=== PATIENT | male | born 1975 | race Caucasian/White ===

== ENCOUNTER 2024-08-13 06:10 | Inpatient (IN) | payer BC ==
--- NOTE | 2024-08-13 06:35 | ED ---
Abdominal Pain HPI - General Chief Complaint: Abdominal Pain Stated Complaint: Vomiting Time Seen by Provider: 08/13/24 06:33 Source: patient, RN notes reviewed Mode of arrival: ambulatory Limitations: no limitations - History of Present Illness Initial Comments: 49 year old male presenting to the ER for evaluation of nausea, vomiting, diarrhea and abdominal pain. Patient states he ate a steak around 6 PM last night and was fine until about 10pm when he started persistently vomiting along with diarrhea. He states his emesis and stool is clear liquid. He denies any hematic emesis, coffee-ground emesis, hematochezia or melena. Patient also was experiencing a right flank discomfort. He states it is a sharp cramping pain. He denies any urinary complaints. No fevers. Patient has not taken anything for his pain at this time. Patient has no significant past medical history. Patient reports mild shortness of breath denies any chest pain. - Related Data Home Medications Medication Instructions Recorded Confirmed Ascorbic Acid [Vitamin C] 1,000 mg PO W/BRKFST 08/13/24 08/13/24 Cholecalciferol (Vitamin D3) 100 mcg PO W/BRKFST 08/13/24 08/13/24 [Vitamin D3 (50 Mcg = 2000 Iu)] Magnesium Oxide [Magnesium] 500 mg PO W/BRKFST 08/13/24 08/13/24 Multivitamins, Thera [Multivitamin 1 tab PO W/BRKFST 08/13/24 08/13/24 (formulary)] Allergies Allergy/AdvReac Type Severity Reaction Status Date / Time Penicillins Allergy Anaphylaxis Verified 08/13/24 10:48 Review of Systems ROS Statement: Those systems with pertinent positive or pertinent negative responses have been documented in the HPI. ROS Other: All systems not noted in ROS Statement are negative. Past Medical History Past Medical History: No Reported History History of Any Multi-Drug Resistant Organisms: None Reported Past Surgical History: No Surgical Hx Reported Past Psychological History: No Psychological Hx Reported Smoking Status: Never smoker Past Alcohol Use History: None Reported Past Drug Use History: None Reported General Exam Limitations: no limitations General appearance: alert, in no apparent distress Respiratory exam: Present: normal lung sounds bilaterally. Absent: respiratory distress, wheezes, rales, rhonchi, stridor Cardiovascular Exam: Present: normal rhythm, tachycardia, normal heart sounds GI/Abdominal exam: Present: soft, tenderness (upper quadrants), normal bowel s ounds Neurological exam: Present: alert, oriented X3, CN II-XII intact Skin exam: Present: warm, dry, intact, normal color. Absent: rash Course Vital Signs 08/13/24 08/13/24 08/13/24 06:11 07:38 10:17 Temperature 98.8 F 97.5 F L 98.0 F Pulse Rate 121 H 105 H 96 Respiratory 20 17 17 Rate Blood Pressure 120/81 116/83 103/74 O2 Sat by Pulse 99 100 95 Oximetry - Reevaluation(s) Reevaluation #1: 08/13/24 07:46 Patient reevaluated. Patient reporting nausea. No signs of acute distress 08/13/24 09:28 Patient reevaluated. Patient resting comfortably on stretcher no signs of acute distress. Updated on laboratory and CT results. Patient requesting water, which was provided. 08/13/24 09:[address] Lucas, [facility] physician, for admission. Medical Decision Making - Medical Decision Making Was pt. sent in by a medical professional or institution (, PA, [facility], urgent care, hospital, or residential...) When possible be specific @ -No Did you speak to anyone other than the patient for history (EMS, parent, family, police, friend...)? What history was obtained from this source @ -No Did you review nursing and triage notes (agree or disagree)? Why? @ -I reviewed and agree with nursing and triage notes Were old charts reviewed (outside hosp., previous admission, EMS record, old EKG, old radiological studies, urgent care reports/EKG's, residential records)? Report findings @ -No old charts were reviewed Differential Diagnosis (chest pain, altered mental status, abdominal pain women, abdominal pain men, vaginal bleeding, weakness, fever, dyspnea, syncope, headache, dizziness, GI bleed, back pain, seizure, CVA, palpatations, mental health, musculoskeletal)? @ -Differential Abdominal Pain Men:Appendicitis, cholecystitis, diverticulosis, ischemic bowel, pancreatitis, hepatitis, UTI, gastroenteritis, AAA, incarcerated hernia, bowel obstruction, constipation, inflammatory bowel, hepatitis, peptic ulcer disease, splenic infarction, perforated viscus, testicular torsion, this is not meant to be an all-inclusive list EKG interpreted by me (3pts min.). @ -As above X-rays interpreted by me (1pt min.). @ -CXR interpreted by me negative for focal consolidations, pneumothorax or pleural effusions CT interpreted by me (1pt min.). @ -CT abdomen pelvis showing possible mild diffuse long segment acute colitis. No bowel obstruction. Normal appendix. Small fat-containing umbilical hernia. Diverticula no evidence of acute diverticulitis. No other acute abnormality. U/S interpreted by me (1pt. min.). @ -None done What testing was considered but not performed or refused? (CT, X-rays, U/S, labs)? Why? @ -None What meds were considered but not given or refused? Why? @ -None Did you discuss the management of the patient with other professionals (professionals i.e. , PA, [facility], lab, RT, psych nurse, dialysis social worker, communication studies professor, teacher, custom protection officer, top case assembler)? Give summary @ -Yes, case discussed with Dr. Lucas, [facility] physician, for admission. Was smoking cessation discussed for >3mins.? @ -No Was critical care preformed (if so, how long)? @ -No Were there social determinants of health that impacted care today? How? (Homel essness, low income, unemployed, alcoholism, drug addiction, transportation, low edu. Level, literacy, decrease access to med. care, halfway, rehab)? @ -No Was there de-escalation of care discussed even if they declined (Discuss DNR or withdrawal of care, Hospice)? DNR status @ -No What co-morbidities impacted this encounter? (DM, HTN, Smoking, COPD, CAD, Cancer, CVA, ARF, Chemo, Hep., AIDS, mental health diagnosis, sleep apnea, morbid obesity)? @ -None Was patient admitted / discharged? Hospital course, mention meds given and route, prescriptions, significant lab abnormalities, going to OR and other pertinent info. @ -Admitted. 49-year-old male presented the ER for evaluation of nausea, vomiting and diarrhea. Upon rooming, history and physical exam completed. Patient is tachycardic at 121 bpm. Vitals otherwise within acceptable limits. Patient is mildly diaphoretic on exam pacing room and hunched over. Upper abdominal tenderness to exam. Given patient's presentation, EKG was obtained showing a sinus rhythm with inverted T waves in inferior lateral leads. No ST segment elevations or depressions. Given EKG abnormality, troponin ordered and undetected. Laboratory studies showing a WBC of 15.1 with a left shift likely reactive from vomiting. Patient appears dehydrated with potassium of 5.4, BUN of 31, creatinine 1.28 with a GFR 65. Lactic 3.4, also likely reactive, for which patient received 1500 IV fluid bolus. Patient given symptomatic treatment in the emergency department with Zofran, Reglan, Toradol and Dilaudid, with improvement. Upon reevaluation, patient appears more comfortable laying in stretcher no signs of acute distress. Results discussed with patient, all questions answered. Admission was offered for IV fluids and symptomatic control , patient is agreeable. Admission accepted by sound physician, Dr. Lucas. Case discussed with ED attending, Dr. García. Undiagnosed new problem with uncertain prognosis? @ -No Drug Therapy requiring intensive monitoring for toxicity (Heparin, Nitro, Insulin, Cardizem)? @ -No Were any procedures done? @ -No Diagnosis/symptom? @ -Colitis/JOSEP/leukocytosis Acute, or Chronic, or Acute on Chronic? @ -Acute Uncomplicated (without systemic symptoms) or Complicated (systemic symptoms)? @ -Complicated Side effects of treatment? @ -No Exacerbation, Progression, or Severe Exacerbation? @ -No Poses a threat to life or bodily function? How? (Chest pain, [place], [place], pneumonia, PE, COPD, DKA, ARF, appy, cholecystitis, CVA, Diverticulitis, Homicidal, Suicidal, threat to staff... and all critical care pts) @ -Unlikely - Lab Data Result diagrams: 08/13/24 06:35 08/13/24 06:35 Lab Results 08/13/24 08/13/24 08/13/24 Range/Units 06:30 06:35 06:35 WBC 15.1 H (3.8-10.6) k/uL RBC 5.79 (4.30-5.90) m/uL Hgb 18.1 H (13.0-17.5) gm/dL Hct 53.9 H (39.0-53.0) % MCV 93.1 (80.0-100.0) fL MCH 31.3 (25.0-35.0) pg MCHC 33.7 (31.0-37.0) g/dL RDW 12.7 (11.5-15.5) % Plt Count 310 (150-450) k/uL MPV 7.2 Neutrophils % 93 % Lymphocytes % 4 % Monocytes % 2 % Eosinophils % 1 % Basophils % 0 % Neutrophils # 14.0 H (1.3-7.7) k/uL Lymphocytes # 0.6 L (1.0-4.8) k/uL Monocytes # 0.3 (0-1.0) k/uL Eosinophils # 0.2 (0-0.7) k/uL Basophils # 0.0 (0-0.2) k/uL PT 11.4 (10.0-12.5) sec INR 1.0 (<1.2) APTT 23.3 (22.0-30.0) sec Sodium 141 (137-145) mmol/L Potassium 5.4 H (3.5-5.1) mmol/L Chloride 102 (98-107) mmol/L Carbon Dioxide 21 L (22-30) mmol/L Anion Gap 18 mmol/L BUN 31 H (9-20) mg/dL Creatinine 1.28 H (0.66-1.25) mg/dL Est GFR (CKD-EPI)AfAm 75 (>60 ml/min/1.73 sqM) Est GFR (CKD-EPI)NonAf 65 (>60 ml/min/1.73 sqM) Glucose 170 H (74-99) mg/dL Lactic Ac Sepsis Rflx Plasma Lactic Acid Dk (0.7-2.0) mmol/L Calcium 10.0 (8.4-10.2) mg/dL Total Bilirubin 1.2 (0.2-1.3) mg/dL AST 37 (17-59) U/L ALT 48 (4-49) U/L Alkaline Phosphatase 84 (38-126) U/L Creatine Kinase (55-170) U/L Troponin I (0.000-0.034) ng/mL C-Reactive Protein (<1.0) mg/dL Total Protein 8.8 H (6.3-8.2) g/dL Albumin 5.3 H (3.5-5.0) g/dL Amylase 61 (30-110) U/L Lipase 120 (23-300) U/L Urine Color Urine Appearance (Clear) Urine pH (5.0-8.0) Ur Specific [place] (1.001-1.035) Urine Protein (Negative) Urine Glucose (UA) (Negative) Urine Ketones (Negative) Urine Blood (Negative) Urine Nitrite (Negative) Urine Bilirubin (Negative) Urine Urobilinogen (<2.0) mg/dL Ur Leukocyte Esterase (Negative) 08/13/24 08/13/24 08/13/24 Range/Units 06:35 06:35 06:39 WBC (3.8-10.6) k/uL RBC (4.30-5.90) m/uL Hgb (13.0-17.5) gm/dL Hct (39.0-53.0) % MCV (80.0-100.0) fL MCH (25.0-35.0) pg MCHC (31.0-37.0) g/dL RDW (11.5-15.5) % Plt Count (150-450) k/uL MPV Neutrophils % % Lymphocytes % % Monocytes % % Eosinophils % % Basophils % % Neutrophils # (1.3-7.7) k/uL Lymphocytes # (1.0-4.8) k/uL Monocytes # (0-1.0) k/uL Eosinophils # (0-0.7) k/uL Basophils # (0-0.2) k/uL PT (10.0-12.5) sec INR (<1.2) APTT (22.0-30.0) sec Sodium (137-145) mmol/L Potassium (3.5-5.1) mmol/L Chloride (98-107) mmol/L Carbon Dioxide (22-30) mmol/L Anion Gap mmol/L BUN (9-20) mg/dL Creatinine (0.66-1.25) mg/dL Est GFR (CKD-EPI)AfAm (>60 ml/min/1.73 sqM) Est GFR (CKD-EPI)NonAf (>60 ml/min/1.73 sqM) Glucose (74-99) mg/dL Lactic Ac Sepsis Rflx Plasma Lactic Acid Dk 3.4 H* (0.7-2.0) mmol/L Calcium (8.4-10.2) mg/dL Total Bilirubin (0.2-1.3) mg/dL AST (17-59) U/L ALT (4-49) U/L Alkaline Phosphatase (38-126) U/L Creatine Kinase 129 (55-170) U/L Troponin I (0.000-0.034) ng/mL C-Reactive Protein 1.7 H (<1.0) mg/dL Total Protein (6.3-8.2) g/dL Albumin (3.5-5.0) g/dL Amylase (30-110) U/L Lipase (23-300) U/L Urine Color Urine Appearance (Clear) Urine pH (5.0-8.0) Ur Specific [place] (1.001-1.035) Urine Protein (Negative) Urine Glucose (UA) (Negative) Urine Ketones (Negative) Urine Blood (Negative) Urine Nitrite (Negative) Urine Bilirubin (Negative) Urine Urobilinogen (<2.0) mg/dL Ur Leukocyte Esterase (Negative) 08/13/24 08/13/24 08/13/24 Range/Units 07:15 07:57 09:30 WBC (3.8-10.6) k/uL RBC (4.30-5.90) m/uL Hgb (13.0-17.5) gm/dL Hct (39.0-53.0) % MCV (80.0-100.0) fL MCH (25.0-35.0) pg MCHC (31.0-37.0) g/dL RDW (11.5-15.5) % Plt Count (150-450) k/uL MPV Neutrophils % % Lymphocytes % % Monocytes % % Eosinophils % % Basophils % % Neutrophils # (1.3-7.7) k/uL Lymphocytes # (1.0-4.8) k/uL Monocytes # (0-1.0) k/uL Eosinophils # (0-0.7) k/uL Basophils # (0-0.2) k/uL PT (10.0-12.5) sec INR (<1.2) APTT (22.0-30.0) sec Sodium (137-145) mmol/L Potassium (3.5-5.1) mmol/L Chloride (98-107) mmol/L Carbon Dioxide (22-30) mmol/L Anion Gap mmol/L BUN (9-20) mg/dL Creatinine (0.66-1.25) mg/dL Est GFR (CKD-EPI)AfAm (>60 ml/min/1.73 sqM) Est GFR (CKD-EPI)NonAf (>60 ml/min/1.73 sqM) Glucose (74-99) mg/dL Lactic Ac Sepsis Rflx Y Plasma Lactic Acid Kd (0.7-2.0) mmol/L Calcium (8.4-10.2) mg/dL Total Bilirubin (0.2-1.3) mg/dL AST (17-59) U/L ALT (4-49) U/L Alkaline Phosphatase (38-126) U/L Creatine Kinase (55-170) U/L Troponin I <0.012 (0.000-0.034) ng/mL C-Reactive Protein (<1.0) mg/dL Total Protein (6.3-8.2) g/dL Albumin (3.5-5.0) g/dL Amylase (30-110) U/L Lipase (23-300) U/L Urine Color Yellow Urine Appearance Clear (Clear) Urine pH 6.0 (5.0-8.0) Ur Specific [place] >1.050 H (1.001-1.035) Urine Protein Trace H (Negative) Urine Glucose (UA) Negative (Negative) Urine Ketones 1+ H (Negative) Urine Blood Negative (Negative) Urine Nitrite Negative (Negative) Urine Bilirubin Negative (Negative) Urine Urobilinogen <2.0 (<2.0) mg/dL Ur Leukocyte Esterase Negative (Negative) - EKG Data -: EKG Interpreted by Me EKG Comments: EKG taken at 7: 21 showing a sinus rhythm with inverted T waves in inferolateral leads. No ST segment elevations or depressions. Ventricular rate 97, TN interval 170, QRS duration 82, QT/QTc 314/369 - Radiology Data Radiology results: report reviewed, image reviewed Disposition Clinical Impression: Colitis, JOSEP (acute kidney injury), Leukocytosis Disposition: ADMITTED IP TO THIS HOSP Condition: Stable Time of Disposition: 09:55
[2024-08-13] MEDS: ONDANSETRON 4 MG/2 ML VIAL IVP STA (06:38)
[2024-08-13] MEDS: KETOROLAC 15 MG/ML 1 ML VIAL IVP STA (06:38)
[2024-08-13] MEDS: SODIUM CHLORIDE 0.9% 1,000 ML IV ONE (06:39)
[2024-08-13 06:58] LABS: Basophils % (A) 0 %; Eosinophils # (A) 0.2 k/uL (0-0.7); Eosinophils % (A) 1 %; HCT 53.9 % (39.0-53.0); HGB 18.1 gm/dL (13.0-17.5); Lymphocytes # (A) 0.6 k/uL (1.0-4.8); Lymphocytes % (A) 4 %; MCH 31.3 pg (25.0-35.0); MCHC 33.7 g/dL (31.0-37.0); MCV 93.1 fL (80.0-100.0); Mean Platelet Volume 7.2; Monocytes # (A) 0.3 k/uL (0-1.0); Monocytes % (A) 2 %; Neutrophils % (A) 93 %; Platelet Count 310 k/uL (150-450); RBC 5.79 m/uL (4.30-5.90); RDW 12.7 % (11.5-15.5); WBC 15.1 k/uL (3.8-10.6)
[2024-08-13] MEDS: HYDROmorphone 1 MG/ML 1 ML SYRINGE IVP STA (06:58)
[2024-08-13] MEDS: METOCLOPRAMIDE 5 MG/ML 2 ML VIAL IVP STA (07:08)
[2024-08-13 07:11] LABS: ALT 48 U/L (4-49); AST 37 U/L (17-59); African American GFR (CKD) 75 (>60 ml/min/1.73 sqM); Albumin 5.3 g/dL (3.5-5.0); Alkaline Phosphatase 84 U/L (38-126); Amylase 61 U/L (30-110); Anion Gap 18 mmol/L; Blood Urea Nitrogen 31 mg/dL (9-20); Carbon Dioxide 21 mmol/L (22-30); Chloride 102 mmol/L (98-107); Glucose 170 mg/dL (74-99); Lipase 120 U/L (23-300); Non-African American GFR(CKD) 65 (>60 ml/min/1.73 sqM); Potassium 5.4 mmol/L (3.5-5.1); Sodium 141 mmol/L (137-145); Total Bilirubin 1.2 mg/dL (0.2-1.3); Total Protein 8.8 g/dL (6.3-8.2)
[2024-08-13] MEDS: SODIUM CHLORIDE 0.9% 500 ML 500 ML IV ONE (07:49)
[2024-08-13 08:18] LABS: Partial Thromboplastin Time 23.3 sec (22.0-30.0); Prothrombin Time 11.4 sec (10.0-12.5)
--- NOTE | 2024-08-13 08:21 | XR ---
EXAMINATION TYPE: XR chest 2V DATE OF EXAM: 08/13/2024 CLINICAL INDICATION: Male, 49 years old with history of sob, TECHNIQUE: Frontal and lateral views of the chest are obtained. COMPARISON: None FINDINGS: There is no focal air space opacity, pleural effusion, or pneumothorax seen. The cardiac silhouette size is within normal limits. The osseous structures are intact. IMPRESSION: No acute cardiopulmonary process. [facility], , 08/13/2024 8:18 AM
--- NOTE | 2024-08-13 09:11 | CT ---
EXAMINATION TYPE: CT abdomen pelvis w con DATE OF EXAM: 08/13/2024 COMPARISON: NONE CLINICAL INDICATION: Male, 49 years old with history of n/v/d/ back pain, RIGHT SIDED BACK PAIN, TECHNIQUE: CT scan of the abdomen and pelvis is performed with IV Contrast, patient injected with 100 mL of Isov ue 300., (none if empty) Oral contrast used: without Oral Contrast (none if empty) CT DLP: 1192.7 mGycm, Automated exposure control for dose reduction was used. FINDINGS: LUNG BASES: No significant abnormality is appreciated. LIVER/GB: Liver is heterogeneously hypodense consistent with diffuse fatty infiltrative hepatocellula r disease. PANCREAS: No significant abnormality is seen. SPLEEN: No significant abnormality is seen. ADRENALS: No significant abnormality is seen. KIDNEYS: No significant abnormality is seen. BOWEL: Suboptimal evaluation without enteric contrast. No abnormal small or large bowel dilatation is seen. Mild/moderate wall thickening involving the right and transverse colon into the left colon and sigmoid colon. No significant surrounding fat stranding. Normal-appearing appendix. A few scattered diverticula. No CT evidence for acute diverticulitis. PROSTATE/SEMINAL VESICLES: No gross abnormality seen. LYMPH NODES: No greater than 1cm abdominal or pelvic lymph nodes are appreciated. OSSEOUS STRUCTURES: Vacuum disc phenomenon with moderate to severe disc space narrowing at the lumbos acral junction. Moderate disc space narrowing at the L1-L2 level.. OTHER: Small fat-containing umbilical hernia. IMPRESSION: Possible mild diffuse long segment acute colitis versus product of poor distention. Corre late clinically. No bowel obstruction is seen. [facility], , 08/13/2024 9:09 AM
[2024-08-13 09:41] LABS: Appearance,Urine Clear (Clear); Bilirubin,Urine Negative (Negative); Blood,Urine Negative (Negative); Color,Urine Yellow; Glucose,Urine (UA) Negative (Negative); Ketones,Urine 1+ (Negative); Leukocyte Esterase,Urine Negative (Negative); Nitrite,Urine Negative (Negative); Protein,Urine Trace (Negative); Urobilinogen,Urine <2.0 mg/dL (<2.0)
[2024-08-13 09:54] LABS: Specific Gravity,Urine >1.050 (1.001-1.035)
[2024-08-13] MEDS ORDERED: NALOXONE 0.4 MG/ML 1 ML VIAL IV PRN (09:55)
[2024-08-13] MEDS ORDERED: ONDANSETRON 4 MG/2 ML VIAL IVP PRN ×2 (09:55→13:19)
[2024-08-13] MEDS ORDERED: KETOROLAC 15 MG/ML 1 ML VIAL IVP PRN (09:55)
[2024-08-13] MEDS: SODIUM CHLORIDE 0.9% 1,000 ML IV SCH (10:16)
[2024-08-13] MEDS ORDERED: MORPHINE SULFATE 4 MG/ML SYRINGE IVP PRN (14:04)
[2024-08-13] MEDS: LACTATED RINGERS 1,000 ML IV SCH (14:05)
--- NOTE | 2024-08-13 14:05 | P.HPIM ---
History of Present Illness H&P Date: 08/13/24 Chief Complaint: Abdominal pain, nausea, vomiting 49-year-old man with no known medical history presented for evaluation of nausea, vomiting, abdominal pain. Patient says that he was eating a steak yesterday and went to bed around 830, at 930 he woke up from sleep with sign ificant nausea and vomiting, significant epigastric pain. He reports he barely got any sleep throughout the night due to significant projectile vomiting throughout the night. His emesis did not contain blood, coffee-ground. He also had several bouts of diarrhea, completely watery with no blood. Patient reports chills. Patient reports on a typical basis he drinks at least a gallon of water throughout the day and has polyuria. He does also report polydipsia. He denies family history of inflammatory bowel disease. He denies recent travel. Denies recent antibiotics. Patient is a channel manager by profession. Patient denies fevers, chest pain, palpitations, syncope. Patient also reports muscle cramping, back pain. In the emergency room, patient was afebrile, 120/81, heart rate 121, 99% on room air. CBC demonstrated leukocytosis to 15.1, polycythemia to 18.1, neutrophil predominant. Chemistries demonstrated sodium of 141, potassium 5.4, bicarb of 21, anion gap of 18, BUN of 31, creatinine of 1.28. Lactic acid was 3.4. Total protein was 8.8, albumin was 5.3, lipase was 120, amylase was 61. Initial troponin is less than 0.012. Coags are unremarkable. Urinalysis shows high specific gravity of greater than 1.05 with trace protein, 1+ glucose. EKG shows NSR, normal axis, normal [place]/QT interval, QRS is narrow, ST-T segments demonstrate inversions in lead II, III, aVF, V4-V6, early R wave progression. Chest x-ray demonstrates clear parenchyma bilaterally, normal-sized heart, air- fluid levels present in the stomach, prominent dilation of the left colon. Abdomen/pelvis CT shows mild to moderate wall thickening involving the right and transverse colon into the left colon and sigmoid colon with no significant surrounding fat stranding. Case was discussed with the emergency room provider, and patient was admitted to the hospital for further management of sepsis secon jenna to acute colitis. All Systems reviewed and pertinent positives and negatives noted in HPI, all other symptoms are negative Gen: In NAD, non-toxic HEENT: normocephalic, atraumatic, hearing acuity is intant, mucous membranes dry CVS: perfusing all extremities well, no pitting edema, regular rate and rhythm, soft systolic murmur Respiratory: symmetric chest expansion, no accessory muscle use, clear to auscultation bilaterally GI: soft, tenderness to palpation in the epigastrium, nondistended : no suprapubic tenderness, no CVA tenderness MSK/Derm: no rashes, cyanosis, point tenderness along the paraspinal muscles of the right back Neuro: CN II-XII intact, no motor weakness, Psych: cooperative, euthymic mood, judgment and insight is intact Labs and imaging as above Assessment/plan: Sepsis secondary to acute colitis Acute kidney injury Polycythemia, hyperalbuminemia, hypoproteinemia -Admit patient as an inpatient with telemetry -Stool culture, stool lactoferrin, blood culture -ESR is pending -Ciprofloxacin, Flagyl will be deferred pending r/o of STEC -Nausea control: zofran PRN -pain control: tylenol PRN, toradol PRN, morphine PRN -IVF: switch to lactated ringers 130cc/hr Polyuria/Polydipsia -SOsm, UOsm pending Pt is Full Code DVT PPx with heparin TID Past Medical History Past Medical History: No Reported History History of Any Multi-Drug Resistant Organisms: None Reported Past Surgical History: No Surgical Hx Reported Past Psychological History: No Psychological Hx Reported Smoking Status: Never smoker Past Alcohol Use History: None Reported Past Drug Use History: None Reported Medications and Allergies Home Medications Medication Instructions Recorded Confirmed Type Ascorbic Acid [Vitamin C] 1,000 mg PO W/BRKFST 08/13/24 08/13/24 History Cholecalciferol (Vitamin D3) 100 mcg PO W/BRKFST 08/13/24 08/13/24 History [Vitamin D3 (50 Mcg = 2000 Iu)] Magnesium Oxide [Magnesium] 500 mg PO W/BRKFST 08/13/24 08/13/24 History Multivitamins, Thera [Multivitamin 1 tab PO W/BRKFST 08/13/24 08/13/24 History (formulary)] Allergies Allergy/AdvReac Type Severity Reaction Status Date / Time Penicillins Allergy Anaphylaxis Verified 08/13/24 10:48 Physical Exam Osteopathic Statement: *. No significant issues noted on an osteopathic str uctural exam other than those noted in the History and Physical/Consult. Vitals: Vital Signs Temp Pulse Resp BP Pulse Ox 08/13/24 12:21 15 08/13/24 10:17 98.0 F 96 17 103/74 95 08/13/24 07:38 97.5 F L 105 H 17 116/83 100 08/13/24 06:11 98.8 F 121 H 20 120/81 99 Intake and Output 08/12/24 08/13/24 08/13/24 22:59 06:59 14:59 Other: Weight 83.915 kg Results CBC & Chem 7: 08/13/24 06:35 08/13/24 06:35 Labs: Abnormal Lab Results - Last 24 Hours (Table) 08/13/24 08/13/24 08/13/24 Range/Units 06:35 06:35 06:35 WBC 15.1 H (3.8-10.6) k/uL Hgb 18.1 H (13.0-17.5) gm/dL Hct 53.9 H (39.0-53.0) % Neutrophils # 14.0 H (1.3-7.7) k/uL Lymphocytes # 0.6 L (1.0-4.8) k/uL Potassium 5.4 H (3.5-5.1) mmol/L Carbon Dioxide 21 L (22-30) mmol/L BUN 31 H (9-20) mg/dL Creatinine 1.28 H (0.66-1.25) mg/dL Glucose 170 H (74-99) mg/dL Plasma Lactic Acid Dk (0.7-2.0) mmol/L C-Reactive Protein 1.7 H (<1.0) mg/dL Total Protein 8.8 H (6.3-8.2) g/dL Albumin 5.3 H (3.5-5.0) g/dL Ur Specific [place] (1.001-1.035) Urine Protein (Negative) Urine Ketones (Negative) 08/13/24 08/13/24 Range/Units 06:39 09:30 WBC (3.8-10.6) k/uL Hgb (13.0-17.5) gm/dL Hct (39.0-53.0) % Neutrophils # (1.3-7.7) k/uL Lymphocytes # (1.0-4.8) k/uL Potassium (3.5-5.1) mmol/L Carbon Dioxide (22-30) mmol/L BUN (9-20) mg/dL Creatinine (0.66-1.25) mg/dL Glucose (74-99) mg/dL Plasma Lactic Acid Dk 3.4 H* (0.7-2.0) mmol/L C-Reactive Protein (<1.0) mg/dL Total Protein (6.3-8.2) g/dL Albumin (3.5-5.0) g/dL Ur Specific [place] >1.050 H (1.001-1.035) Urine Protein Trace H (Negative) Urine Ketones 1+ H (Negative)
[2024-08-13] MEDS: ACETAMINOPHEN TAB 325 MG TAB PO PRN (17:22)
[2024-08-13] MEDS: HEPARIN SODIUM,PORCINE 5,000 UNIT/ML 1 ML VIAL SQ SCH (17:36)
[2024-08-14] MEDS: MULTIVITAMINS, THERA 1 EACH TAB PO SCH (08:27)
[2024-08-14] MEDS: ASCORBIC ACID 500 MG TAB PO SCH (08:27)
[2024-08-14] MEDS: CHOLECALCIFEROL 25 MCG (1000 IU) TABLET PO SCH (08:27)
[2024-08-14] MEDS: MAGNESIUM OXIDE 400 MG TAB PO SCH (08:27)
[2024-08-14 08:36] VITALS: BP 117/72; PULSE 84; RESP 18; TEMP 99
[2024-08-14 08:42] LABS: HCT 43.3 % (39.6-50.0); HGB 14.3 g/dL (13.0-17.0); MCH 30.7 pg (27.0-32.0); MCV 92.9 FL (80.0-97.0); Mean Platelet Volume 9.6 FL (9.5-12.2); NRBC Per 100 WBC 0 X 10*3/uL (0.00-0.01); Platelet Count 256 X 10*3/uL (140-440); RBC 4.66 X 10*6/uL (4.40-5.60); RDW 13.1 % (11.5-14.5); WBC 8.23 X 10*3/uL (4.50-10.00)
[2024-08-14 08:43] LABS: Basophils # (A) 0.02 X 10*3/uL (0.00-0.10); Basophils % (A) 0.2 %; Eosinophils # (A) 0.03 X 10*3/uL (0.04-0.35); Eosinophils % (A) 0.4 %; Lymphocytes # (A) 1.37 X 10*3/uL (0.90-5.00); Lymphocytes % (A) 16.6 %; Monocytes # (A) 0.57 X 10*3/uL (0.20-1.00); Monocytes % (A) 6.9 %; Neutrophils # (A) 6.21 X 10*3/uL (1.80-7.70); Neutrophils % (A) 75.5 %
[2024-08-14 09:57] LABS: BUN/Creat Ratio 17.78 Ratio (12.00-20.00); Calcium 8.5 mg/dL (8.7-10.3); Carbon Dioxide 24.2 mmol/L (21.6-31.8); Chloride 103 mmol/L (96-109); Glucose 107 mg/dL (70-110); Potassium 4.1 mmol/L (3.5-5.5); Sodium 137 mmol/L (135-145)
[2024-08-14 09:58] LABS: Magnesium 1.8 mg/dL (1.5-2.4)
--- NOTE | 2024-08-14 12:37 | P.DS ---
Providers Date of admission: 08/13/24 11:11 Attending physician: Panda Lucas MD [facility] Course: Discharge diagnoses; Sepsis secondary to acute colitis, resolved Acute kidney injury, resolved Polycythemia, hyperalbuminemia, hypoproteinemia, all resolved Hospital course; 49-year-old man with no known medical history who presented to the emergency department for further evaluation of nausea, vomiting, abdominal pain. He had awoken from sleep with significant nausea, vomiting and severe epigastric pain. Lab work was completed in the emergency department which showed signs of sepsis. EKG was performed, without abnormality. Chest x-ray demonstrated no acute cardiopulmonary process, however noted prominent dilation of the left colon. Abdomen/pelvis CT showed mild to moderate wall thickening involving the right and transverse colon into the left colon and sigmoid colon without significant surrounding fat stranding. He received IV fluids with lactated Ringer's. As of last night, patient's discomfort had improved, able to tolerate diet without issue. Has not had a bowel movement since giving a stool sample at the time of arrival, however has produced flatus. Stool culture and blood culture were both ordered on this visit, however results are currently pending. Discussed with the patient, if there is a positive culture and he will require antibiotics we will contact him and provide information regarding set antibiotic. He verbalized understanding at the importance of following up with his primary care physician within 1 week of discharge. He has no acute complaints today, and is excited for discharge. Physical Exam: General: nontoxic, no distress, appears at stated age Derm: warm, dry, intact Head: atraumatic, normocephalic, symmetric Eyes: EOMI, anicteric sclera Mouth: no lip lesion, mucus membranes moist Cardiovascular: S1 S2 reg, no murmur, rubs, or gallops Lungs: CTA bilateral, no rales, no accessory muscle use Abdominal: soft, non-tender to palpataion, no appreciable organomegaly Extremities: no gross muscle atrophy, no edema, no contractures Neuro: Alert, Oriented, CNII-XII grossly intact, gait normal Psych: well appearing, appropriate affect Dictation was produced using [employer] dictation software. please excuse any grammatical, word or spelling errors. I saw and evaluated the patient during the [place] and critical portions of this encounter, and discussed the case in detail with the resident author of this note, I agree with the Assessment and Plan, and my changes, if any, are highlighted in blue. A total of 34 minutes were spent on this discharge Patient Condition at Discharge: Good Plan - Discharge Summary Discharge Rx Participant: No New Discharge Prescriptions: No Action Magnesium Oxide [Magnesium] 500 mg PO W/BRKFST Ascorbic Acid [Vitamin C] 1,000 mg PO W/BRKFST Cholecalciferol (Vitamin D3) [Vitamin D3 (50 Mcg = 2000 Iu)] 100 mcg PO W/BRKFST Multivitamins, Thera [Multivitamin (formulary)] 1 tab PO W/BRKFST Discharge Medication List Ascorbic Acid [Vitamin C] 1,000 mg PO W/BRKFST 08/13/24 [History] Cholecalciferol (Vitamin D3) [Vitamin D3 (50 Mcg = 2000 Iu)] 100 mcg PO W/BRKFST 08/13/24 [History] Magnesium Oxide [Magnesium] 500 mg PO W/BRKFST 08/13/24 [History] Multivitamins, Thera [Multivitamin (formulary)] 1 tab PO W/BRKFST 08/13/24 [History] Follow up Appointment(s)/Referral(s): Carlos Turner DO [Primary Care Provider] - 1 Week Patient Instructions/Handouts: Colitis (ED) Discharge Disposition: HOME SELF-CARE
== END 2024-08-14 13:09 | disposition home or self-care (01) | DRG 872 ==
LOC: EC 06:10 → 6NMEDSUR 11:11 → OBSVTOIN 11:11 → 6NMEDSUR 13:54
PROVIDERS: ADMIT Internal Medicine; ATTEND Internal Medicine
DX: A41.9 Sepsis, unspecified organism (principal); E77.8 Other disorders of glycoprotein metabolism; N17.9 Acute kidney failure, unspecified; R17 Unspecified jaundice; D75.1 Secondary polycythemia; K52.9 Noninfective gastroenteritis and colitis, unspecified; R63.1 Polydipsia; Z88.0 Allergy status to penicillin
CPT/HCPCS: 36415; 71046; 74177; 80048; 80053; 81003; 82150; 82550; 83605; 83630; 83690; 83735; 83930; 83935; 83993; 84484; 85025; 85610; 85652; 85730; 86140; 87040; 87045; 87046; 93005; 96361; 96372; 96374; 96375; 99285